=== PATIENT | female | born 1995 | race Caucasian/White ===

== ENCOUNTER 2021-09-06 22:52 | Emergency (ER) | payer OTHER ==
[~2021-09-06] VITALS: Ht 165.1 cm; Wt 67.6 kg
[2021-09-07 02:12] VITALS: BP 116/81
== END 2021-09-07 02:14 | disposition home or self-care (01) ==
LOC: ER 22:53
DX: R07.89 Other chest pain (principal)
CPT/HCPCS: 71046; 93005; 99283